=== PATIENT | female | born 1990 ===

== ENCOUNTER 2022-12-10 17:33 | Inpatient (IN) | payer MEDICAID ==
[~2022-12-10] VITALS: Ht 172.7 cm; Wt 127.0 kg
[2022-12-10 18:30] LABS: BASOPHILS % (AUTO) 0.5 % (0.0-2.0); EOSINOPHILS % (AUTO) 0.7 % (1.0-6.0); HEMATOCRIT 37.1 % (36-46); HEMOGLOBIN 12.1 g/dL (12.0-16.0); LYMPHOCYTES # (AUTO) 1.9 K/uL (1.0-4.8); LYMPHOCYTES % (AUTO) 22.3 % (22.0-44.0); MEAN CORPUSCULAR HEMOGLOBIN 26.6 pg (26.0-34.0); MEAN CORPUSCULAR HGB CONC 32.7 G/dL (31.0-37.0); MEAN CORPUSCULAR VOLUME 82 fL (80-100); MONOCYTES # (AUTO) 0.3 K/uL (0.1-1.0); MONOCYTES % (AUTO) 3.9 % (2.0-9.0); NEUTROPHILS # (AUTO) 6.2 K/uL (1.8-7.7); NEUTROPHILS % (AUTO) 72.6 % (40.0-70.0); PLATELET COUNT (AUTO) 480 K/uL (150-450); RED BLOOD CELL COUNT(AUTO) 4.56 MIL/uL (4.00-5.20); RED CELL DISTRIBUTION WIDTH 13.8 % (11.5-14.5)
[2022-12-10 18:31] LABS: APPEARANCE,URINE HAZY (CLEAR); BILIRUBIN,URINE NEGATIVE (NEGATIVE); GLUCOSE, URINE (UA) NEGATIVE (NEGATIVE); KETONES,URINE NEGATIVE (NEGATIVE); LEUKOCYTE ESTERASE ,URINE SMALL (NEGATIVE); NITRATE,URINE NEGATIVE (NEGATIVE); OCCULT BLOOD,URINE NEGATIVE (NEGATIVE); PH,URINE 5.5 (5.0-8.0); PROTEIN,URINE NEGATIVE (NEGATIVE); SPECIFIC GRAVITIY, URINE 1.005 (1.003-1.030); UROBILINOGEN,URINE <=1.0 mg/dL (<=1.0)
[2022-12-10 18:34] LABS: ANION GAP 11 mmol/L (8-16); CALCIUM, TOTAL 8.9 mg/dL (8.8-10.5); CARBON DIOXIDE 22 mmol/L (22-29); CHLORIDE 104 mmol/L (98-107); CREATININE 0.88 mg/dL (0.60-1.30); GLOMERULAR FILTR. RATE CALC > 60 mL/min (>60); GLUCOSE,RANDOM 120 mg/dL (70-110); SODIUM SERUM 137 mmol/L (136-145); UREA NITROGEN, BLOOD 7 mg/dL (7-18)
[2022-12-10 18:40] LABS: ALANINE AMINOTRANSFERASE 14 U/L (12-78); ALBUMIN 3.6 g/dL (3.4-5.0); ALKALINE PHOSPHATASE 164 U/L (46-116); ASPARTATE AMINOTRANSFERASE 23 U/L (15-37); BILIRUBIN,TOTAL 0.3 mg/dL (0.1-1.0); TOTAL PROTEIN, SERUM 7.7 g/dL (6.4-8.2)
[2022-12-10 18:42] LABS: AMPHET/METH SCREEN,URINE NEGATIVE (NEGATIVE); BARBITURATE SCREEN, URINE NEGATIVE (NEGATIVE); BENZODIAZEPINES SCREEN,URINE NEGATIVE (NEGATIVE); CANNABINOID SCREEN,URINE POSITIVE (NEGATIVE); COCAINE SCREEN,URINE NEGATIVE (NEGATIVE); METHADONE SCREEN, URINE NEGATIVE (NEGATIVE); OPIATE SCREEN,URINE NEGATIVE (NEGATIVE); PHENCYCLIDINE SCREEN,URINE NEGATIVE (NEGATIVE)
[2022-12-10 18:44] LABS: PROTHROMBIN TIME 10.5 SEC (9.4-11.6)
[2022-12-10 18:53] LABS: RBC,URINE 0-2 /HPF (0-2)
[2022-12-10 18:54] LABS: BACTERIA,URINE Moderate /HPF (None Seen); SQUAMOUS EPITHELIAL CELL,UR Moderate /LPF (None Seen)
[2022-12-10] MEDS ORDERED: OLANZapine 5 MG TABLET PO ONE (21:30)
[2022-12-10] MEDS ORDERED: DiphenhydrAMINE HCL 25 MG CAPSULE PO ONE (21:30)
[2022-12-10] MEDS ORDERED: POTASSIUM CHLORIDE 10% 40 MEQ/30 ML LIQUID UDCUP PO ONE (21:30)
[2022-12-10] MEDS ORDERED: CEPHALEXIN MONOHYDRATE 500 MG CAPSULE PO ONE (21:30)
[2022-12-10] MEDS ORDERED: LORazepam 2 MG TABLET PO ONE (21:30)
[2022-12-10 21:48] LABS: COVID AG,FIA SOURCE NASOPHARYNGEAL
[2022-12-10] MEDS ORDERED: HALOPERIDOL 5 MG TABLET PO PRN (23:30)
[2022-12-10] MEDS ORDERED: ZOLPIDEM TARTRATE 10 MG TABLET PO PRN (23:30)
[2022-12-12] VITALS: BP 142/87
[2022-12-12 01:28] VITALS: BP 143/87
[2022-12-12] MEDS ORDERED: POTASSIUM CHLORIDE 20 MEQ ER TABLET PO ONE (04:00)
[2022-12-12] MEDS: CEPHALEXIN MONOHYDRATE 500 MG CAPSULE PO SCH ×3 (08:21→16:24)
[2022-12-12 09:57] VITALS: BP 106/69
[2022-12-12] MEDS ORDERED: IBUPROFEN 400 MG TABLET PO PRN (13:15)
[2022-12-12] MEDS: TOPIRAMATE 100 MG TABLET PO SCH ×2 (13:31→20:42)
[2022-12-12] MEDS: ACETAMINOPHEN 325 MG TABLET PO PRN (13:31)
[2022-12-12] MEDS: GABAPENTIN 400 MG CAPSULE PO SCH (16:24)
[2022-12-12 20:14] VITALS: BP 126/85
[2022-12-12] MEDS: LORazepam 2 MG TABLET PO PRN (20:49)
[2022-12-13] MEDS: GABAPENTIN 400 MG CAPSULE PO SCH ×2 (08:21→16:35)
[2022-12-13] MEDS: CEPHALEXIN MONOHYDRATE 500 MG CAPSULE PO SCH ×3 (08:22→16:34)
[2022-12-13] MEDS: TOPIRAMATE 100 MG TABLET PO SCH ×2 (08:22→20:05)
[2022-12-13 08:41] VITALS: BP 134/94
[2022-12-13] MEDS ORDERED: CEPHALEXIN MONOHYDRATE 250 MG CAPSULE PO SCH (17:00)
[2022-12-13 20:00] VITALS: BP 130/89
[2022-12-13] MEDS: LORazepam 2 MG TABLET PO PRN (21:43)
[2022-12-14] MEDS: TOPIRAMATE 100 MG TABLET PO SCH ×2 (08:29→20:38)
[2022-12-14] MEDS: GABAPENTIN 400 MG CAPSULE PO SCH ×2 (08:29→17:11)
[2022-12-14] MEDS: CEPHALEXIN MONOHYDRATE 500 MG CAPSULE PO SCH ×3 (08:29→17:11)
[2022-12-14 10:18] VITALS: BP 128/71
[2022-12-14] MEDS ORDERED: SERTRALINE HCL 50 MG TABLET PO ONE (10:30)
[2022-12-14 22:08] VITALS: BP 140/80
[2022-12-15 09:47] VITALS: BP 129/90
[2022-12-15] MEDS: TOPIRAMATE 100 MG TABLET PO SCH ×2 (09:48→20:13)
[2022-12-15] MEDS: SERTRALINE HCL 50 MG TABLET PO SCH (09:48)
[2022-12-15] MEDS: CEPHALEXIN MONOHYDRATE 500 MG CAPSULE PO SCH ×3 (09:48→17:13)
[2022-12-15] MEDS: GABAPENTIN 400 MG CAPSULE PO SCH ×2 (09:48→17:13)
[2022-12-15] MEDS: METOPROLOL TARTRATE 25 MG TABLET PO SCH ×2 (09:48→20:13)
[2022-12-15] MEDS: ACETAMINOPHEN 325 MG TABLET PO PRN (12:50)
[2022-12-15 20:03] VITALS: BP 134/84
[2022-12-16] MEDS: LORazepam 2 MG TABLET PO PRN (04:54)
[2022-12-16] MEDS: CEPHALEXIN MONOHYDRATE 500 MG CAPSULE PO SCH ×3 (08:24→16:46)
[2022-12-16] MEDS: GABAPENTIN 400 MG CAPSULE PO SCH ×2 (08:25→16:46)
[2022-12-16] MEDS: SERTRALINE HCL 50 MG TABLET PO SCH (08:25)
[2022-12-16] MEDS: TOPIRAMATE 100 MG TABLET PO SCH ×2 (08:25→20:19)
[2022-12-16] MEDS: METOPROLOL TARTRATE 25 MG TABLET PO SCH ×2 (08:25→20:19)
[2022-12-16 08:33] VITALS: BP 120/76
[2022-12-16 14:32] LABS: GLUCOMETER DEV NAME(LOC) POC.BV
[2022-12-16 20:06] VITALS: BP 111/75
[2022-12-17 08:33] VITALS: BP 112/61
[2022-12-17] MEDS: METOPROLOL TARTRATE 25 MG TABLET PO SCH ×2 (08:36→20:31)
[2022-12-17] MEDS: TOPIRAMATE 100 MG TABLET PO SCH ×2 (08:36→20:31)
[2022-12-17] MEDS: CEPHALEXIN MONOHYDRATE 500 MG CAPSULE PO SCH (08:37)
[2022-12-17] MEDS: SERTRALINE HCL 50 MG TABLET PO SCH (08:37)
[2022-12-17] MEDS: GABAPENTIN 400 MG CAPSULE PO SCH ×2 (08:37→16:34)
[2022-12-17 20:24] VITALS: BP 130/80
[2022-12-17] MEDS: LORazepam 2 MG TABLET PO PRN (22:37)
[2022-12-18 08:19] VITALS: BP 106/68
[2022-12-18] MEDS: METOPROLOL TARTRATE 25 MG TABLET PO SCH ×2 (08:54→20:34)
[2022-12-18] MEDS: SERTRALINE HCL 50 MG TABLET PO SCH (08:54)
[2022-12-18] MEDS: GABAPENTIN 400 MG CAPSULE PO SCH ×2 (08:54→16:32)
[2022-12-18] MEDS: TOPIRAMATE 100 MG TABLET PO SCH ×2 (09:00→20:34)
[2022-12-18 20:47] VITALS: BP 126/71
[2022-12-18] MEDS: LORazepam 2 MG TABLET PO PRN (22:02)
[2022-12-19 08:33] VITALS: BP 128/79
[2022-12-19] MEDS: GABAPENTIN 400 MG CAPSULE PO SCH ×2 (09:00→16:34)
[2022-12-19] MEDS: METOPROLOL TARTRATE 25 MG TABLET PO SCH ×2 (09:00→20:29)
[2022-12-19] MEDS: SERTRALINE HCL 50 MG TABLET PO SCH (09:00)
[2022-12-19] MEDS: TOPIRAMATE 100 MG TABLET PO SCH ×2 (09:00→20:29)
[2022-12-19] MEDS: MULTIVITAMINS WITH MINERALS, THERAPEUTIC TABLET PO SCH (09:01)
[2022-12-19 20:53] VITALS: BP 132/82
[2022-12-20 08:48] VITALS: BP 106/67
[2022-12-20] MEDS: SERTRALINE HCL 50 MG TABLET PO SCH (09:53)
[2022-12-20] MEDS: METOPROLOL TARTRATE 25 MG TABLET PO SCH ×2 (09:53→20:07)
[2022-12-20] MEDS: TOPIRAMATE 100 MG TABLET PO SCH ×2 (09:53→20:07)
[2022-12-20] MEDS: GABAPENTIN 400 MG CAPSULE PO SCH ×2 (09:53→16:34)
[2022-12-20] MEDS: MULTIVITAMINS WITH MINERALS, THERAPEUTIC TABLET PO SCH (09:53)
[2022-12-20 20:34] VITALS: BP 110/68
[2022-12-21] MEDS: MULTIVITAMINS WITH MINERALS, THERAPEUTIC TABLET PO SCH (08:37)
[2022-12-21] MEDS: TOPIRAMATE 100 MG TABLET PO SCH (08:37)
[2022-12-21] MEDS: METOPROLOL TARTRATE 25 MG TABLET PO SCH (08:37)
[2022-12-21] MEDS: SERTRALINE HCL 50 MG TABLET PO SCH (08:37)
[2022-12-21] MEDS: GABAPENTIN 400 MG CAPSULE PO SCH (08:37)
[2022-12-21 08:51] LABS: GLUCOMETER DEV NAME(LOC) POC.BV
[2022-12-21 09:39] VITALS: BP 130/77
[2022-12-21] MEDS ORDERED: SERT-158 PO (13:24)
[2022-12-21] MEDS ORDERED: METO25 PO (13:25)
[2022-12-21] MEDS ORDERED: GABA-1201 PO ×2 (13:25→16:40)
[2022-12-21] MEDS ORDERED: TOPI100T37 PO ×2 (13:26→16:40)
[2022-12-21] MEDS ORDERED: SERT-439 PO (16:40)
== END 2022-12-21 13:58 | disposition home or self-care (01) | DRG 753 ==
LOC: EMS 17:37 → B2X 12-11 21:00 → B2S 12-18 14:35
PROVIDERS: ADMIT Psychiatry & Neurology Child & Adolescent Psychiatry; ATTEND Psychiatry & Neurology Child & Adolescent Psychiatry
DX: F31.4 Bipolar disorder, current episode depressed, severe, without psychotic features (principal); F25.0 Schizoaffective disorder, bipolar type; D75.839 Thrombocytosis, unspecified; Z20.822 Contact with and (suspected) exposure to COVID-19; E87.6 Hypokalemia; F12.10 Cannabis abuse, uncomplicated; F41.9 Anxiety disorder, unspecified; N39.0 Urinary tract infection, site not specified
CPT/HCPCS: 71045; 80053; 80307; 81001; 84132; 84484; 84703; 85025; 85610; 85730; 87086; 87186; 92610; 93005; 99291; 36415-L1; 36415-TC; 70450; 70450-TC